=== PATIENT | female | born 1995 | race Native Hawaiian/Other Pacific Islander ===

== ENCOUNTER 2020-12-13 23:20 | Emergency (ER) | payer MEDICAID ==
[2020-12-13 23:34] VITALS: BP 114/81
[2020-12-13] MEDS ORDERED: ACETAMINOPHEN 500 MG TAB PO ONE (23:43)
[2020-12-13] MEDS ORDERED: FAMOTIDINE 20 MG TAB PO ONE (23:43)
[2020-12-14 00:17] LABS: Basophils % (Auto) 0.3 % (0.0-1.8); Eosinophils # (Auto) 0.1 K/mm3 (0.0-0.4); Eosinophils % (Auto) 1.4 % (0.0-4.3); Hematocrit 33.6 % (30.3-42.9); Hemoglobin 11.7 gm/dl (10.1-14.3); Lymphocytes # (Auto) 2.4 K/mm3 (1.2-5.4); Lymphocytes % (Auto) 22.2 % (13.4-35.0); Mean Corpuscular HGB Conc 35 % (30-34); Mean Corpuscular Volume 85 fl (79-97); Monocytes # (Auto) 0.7 K/mm3 (0.0-0.8); Monocytes % (Auto) 6.1 % (0.0-7.3); Platelet Count 206 K/mm3 (140-440); Red Blood Count 3.95 M/mm3 (3.65-5.03); Red Cell Distribution Width 13.8 % (13.2-15.2)
[2020-12-14 00:42] LABS: Alanine Aminotransferase 13 units/L (7-56); Blood Urea Nitrogen 8 mg/dL (7-17); Calcium 9.3 mg/dL (8.4-10.2); Hemolysis Index 1
[2020-12-14 00:45] LABS: BUN/Creatinine Ratio 20
[2020-12-14 00:46] LABS: Bacteria,Urine 1+ /HPF (Negative); Mucus,Urine FEW /HPF
[2020-12-14 00:56] LABS: Bilirubin,Urine Negative (Negative); Blood,Urine Negative (Negative); Color,Urine Yellow (Yellow); Urobilinogen,Urine < 2.0 mg/dL (<2.0)
--- NOTE | 2020-12-14 01:09 | Ultrasound Report ---
ULTRASOUND OBSTETRIC INDICATION / CLINICAL INFORMATION: with abdominal pain. Clinical Gestational Age (GA) in weeks, days: 17, 3 TECHNIQUE: Transabdominal. COMPARISON: None available. FINDINGS: Single intrauterine . Biparietal Diameter = 4.4 cm = 19, 3 weeks, days Head Circumference = 16.1 cm = 19, 0 weeks, days Abdominal Circumference = 12.9 cm = 18, 3 weeks, days Femur Length = 3.0 cm = 19, 2 weeks, days Average Ultrasound Age (AUA) = 19, 0 weeks, days Heart Rate: 151 beats per minute. Estimated Weight in grams (if calculated): 264 Estimated Weight Growth Percentile (if calculated): 86% Position: breech. Cervix: closed. Length in cm (if measured): 3.2 Placenta: anterior and free of the os. Amniotic Fluid Volume: normal Amniotic Fluid Index (DAYNA) in cm (if calculated): Not calculated. Maternal Adnexa: No significant abnormality. IMPRESSION: 1. Single, living intrauterine with estimated sonographic age of 19, 0 weeks, days. 2. No significant sonographic abnormality. Signer Name: Amanda Givens MD Signed: 12/14/2020 1:05 AM Workstation Name: [id number]
--- NOTE | 2020-12-14 01:24 | Emergency Department Report ---
ED Abdominal Pain HPI - General Chief Complaint: Abdominal Pain Stated Complaint: ABDOMINAL AND BACK PAIN/17 WKS Source: patient Mode of arrival: Ambulatory Limitations: No Limitations - History of Present Illness Initial Comments: Patient is a A0 25-year-old female who is approximately 17 weeks gestation presents to the ED with complaint of acute onset persistent low back pain that radiates to the lower abdomen and epigastric area for the last 2 days, worse in the last 8 hours. Patient states that the pain has been constant, persistent and sharp. Patient denies fall, heavy lifting, physical or strenuous activity, cough, nausea, vomiting, chest pain, shortness of breath, dysuria, urinary frequency and urgency, vaginal bleeding, vaginal discharge, or headache and dizziness. MD Complaint: abdominal pain, other (lower back pain) -: Sudden, days(s) (2) Location: suprapubic Radiation: back (lower) Migration to: no migration Severity scale (0 -10): 4 Quality: aching, dull Consistency: constant Improves With: nothing Worsens With: movement Associated Symptoms: denies other symptoms, anorexia. denies: nausea, vomiting, diarrhea, fever, chills, dysuria, hematochezia, melena - Related Data Previous Rx's Medication Instructions Recorded Last Taken Type Acetaminophen [Tylenol] 500 mg PO Q6HR PRN #30 tablet 12/14/20 Unknown Rx Famotidine [Pepcid] 20 mg PO BID #60 tablet 12/14/20 Unknown Rx Allergies Allergy/AdvReac Type Severity Reaction Status Date / Time No Known Allergies Allergy Unverified 12/13/20 23:28 ED Review of Systems ROS: Stated complaint: ABDOMINAL AND BACK PAIN/17 WKS Other details as noted in HPI Constitutional: denies: chills, fever Eyes: denies: eye pain, eye discharge, vision change ENT: denies: ear pain, throat pain Respiratory: denies: cough, shortness of breath, wheezing Cardiovascular: denies: chest pain, palpitations Endocrine: no symptoms reported Gastrointestinal: abdominal pain (epigastric). denies: nausea, vomiting, diarrhea Genitourinary: denies: urgency, dysuria, discharge Musculoskeletal: back pain (lower), arthralgia, myalgia. denies: joint swelling Skin: denies: rash, lesions Neurological: denies: headache, weakness, paresthesias Psychiatric: denies: anxiety, depression Hematological/Lymphatic: denies: easy bleeding, easy bruising ED Past Medical Hx - Past Medical History Previous Medical History?: Yes Hx Hypertension: Yes - Surgical History Past Surgical History?: Yes Additional Surgical History: Left leg - Social History Smoking Status: Former Smoker - Medications Home Medications: Home Medications Medication Instructions Recorded Confirmed Last Taken Type Acetaminophen [Tylenol] 500 mg PO Q6HR PRN #30 tablet 12/14/20 Unknown Rx Famotidine [Pepcid] 20 mg PO BID #60 tablet 12/14/20 Unknown Rx ED Physical Exam - General Limitations: No Limitations General appearance: alert, in no apparent distress - Head Head exam: Present: atraumatic, normocephalic, normal inspection - Eye Eye exam: Present: normal appearance, PERRL, EOMI Pupils: Present: normal accommodation - ENT ENT exam: Present: normal exam, normal orophraynx, mucous membranes moist, TM's normal bilaterally, normal external ear exam - Neck Neck exam: Present: normal inspection, full ROM - Respiratory Respiratory exam: Present: normal lung sounds bilaterally. Absent: respiratory distress, wheezes, rales, rhonchi, chest wall tenderness, accessory muscle use, prolonged expiratory - Cardiovascular Cardiovascular Exam: Present: regular rate, normal rhythm, normal heart sounds. Absent: systolic murmur, diastolic murmur, rubs, gallop - GI/Abdominal GI/Abdominal exam: Present: soft, tenderness (mildly tender upper abdomen), normal bowel sounds. Absent: guarding, rebound, hyperactive bowel sounds, hypoactive bowel sounds, organomegaly - Extremities Exam Extremities exam: Present: normal inspection, full ROM, normal capillary refill - Back Exam Back exam: Present: normal inspection, full ROM. Absent: tenderness, CVA tenderness (R), CVA tenderness (L), muscle spasm, paraspinal tenderness, vertebral tenderness - Neurological Exam Neurological exam: Present: alert, oriented X3, CN II-XII intact, normal gait, reflexes normal - Psychiatric Psychiatric exam: Present: normal affect, normal mood - Skin Skin exam: Present: warm, dry, intact, normal color. Absent: rash ED Course Vital Signs 12/13/20 23:28 Temperature 98.5 F Pulse Rate 93 H Respiratory 16 Rate Blood Pressure 114/81 [Right] O2 Sat by Pulse 100 Oximetry ED Medical Decision Making - Lab Data Result diagrams: 12/13/20 23:47 12/13/20 23:47 - Radiology Data Radiology results: report reviewed, image reviewed [facility] [address] [id number] Ultrasound Report Signed Patient: JAIDA TAVARES MR#: [id number] : 1995 Acct:[id number] Age/Sex: 25 / F ADM Date: 12/13/20 Loc: ED Attending Dr: Ordering Physician: ALEX SILVA Date of Service: 12/13/20 Procedure(s): US OB >= 14 weeks Fetus Accession Number(s): [id number] cc: ALEX SILVA ULTRASOUND OBSTETRIC INDICATION / CLINICAL INFORMATION: with abdominal pain. Clinical Gestational Age (GA) in weeks, days: 17, 3 TECHNIQUE: Transabdominal. COMPARISON: None available. FINDINGS: Single intrauterine . Biparietal Diameter = 4.4 cm = 19, 3 weeks, days Head Circumference = 16.1 cm = 19, 0 weeks, days Abdominal Circumference = 12.9 cm = 18, 3 weeks, days Femur Length = 3.0 cm = 19, 2 weeks, days Average Ultrasound Age (AUA) = 19, 0 weeks, days Heart Rate: 151 beats per minute. Estimated Weight in grams (if calculated): 264 Estimated Weight Growth Percentile (if calculated): 86% Position: breech. Cervix: closed. Length in cm (if measured): 3.2 Placenta: anterior and free of the os. Amniotic Fluid Volume: normal Amniotic Fluid Index (DAYNA) in cm (if calculated): Not calculated. Maternal Adnexa: No significant abnormality. IMPRESSION: 1. Single, living intrauterine with estimated sonographic age of 19, 0 weeks, days. 2. No significant sonographic abnormality. Signer Name: Amanda Givens MD Signed: 12/14/2020 1:05 AM Workstation Name: [id number] Transcribed By: DT Dictated By: Michele Givens MD Electronically Authenticated By: Michele Givens MD Signed Date/Time: 12/14/20104 DD/ 2 TD/TT: - Medical Decision Making This is a A0 25-year-old female who is approximately 17 weeks gestation presents to the ED with complaint of acute onset persistent low back pain that radiates to the lower abdomen and epigastric area for the last 2 days, worse in the last 8 hours. Patient states that the pain has been constant, persistent and sharp. In the ED, patient is alert and oriented x3 and is not in any distress, is hemodynamically stable. Patient was treated for pain in the ED with Tylenol and Pepcid. Lab test results were reviewed and are all nonactionable. Pelvic ultrasound showed a single, living intrauterine with estimated sonographic age of 19 weeks, 0 days with heart rate of 151 bpm. On reevaluation, patient's pain is well controlled medication. Patient was therefore discharged home on medications and advised to follow-up with her PRIMARY THERAPIST physician in 5 to 7 days for reevaluation or return to the ED immediately if symptoms get worse. - Differential Diagnosis GERD; Muscle spasms; Muscle strain; UTI Critical care attestation.: If time is entered above; I have spent that time in minutes in the direct care of this critically ill patient, excluding procedure time. ED Disposition Clinical Impression: Abdominal pain during in second trimester, Spasm of muscle of lower back Disposition: 01 HOME / SELF CARE / HOMELESS Is pt being admited?: No Does the pt Need Aspirin: No Condition: Stable Instructions: Muscle Cramps and Spasms, [id number], Abdominal Pain, Adult, [id number], Abdominal Pain (ED) Additional Instructions: Take medication with food, drink plenty fluids and follow-up with your primary care physician in 5 to 7 days for reevaluation. Return to the ED immediately if symptoms get worse. Prescriptions: Acetaminophen [Tylenol] 500 mg PO Q6HR PRN #30 tablet PRN Reason: Pain , Severe (7-10) Famotidine [Pepcid] 20 mg PO BID #60 tablet Referrals: BRANDON MARIE MD [Staff Physician] - 3-5 Days Time of Disposition: 01:21 Print Language: ESTONIAN
== END 2020-12-14 01:55 | disposition home or self-care (01) ==
LOC: ED 23:20
DX: O26.892 Other specified pregnancy related conditions, second trimester (principal); M62.830 Muscle spasm of back; R10.30 Lower abdominal pain, unspecified; Z3A.17 17 weeks gestation of pregnancy; I10 Essential (primary) hypertension; Z87.891 Personal history of nicotine dependence
CPT/HCPCS: 36415; 76805; 80053; 81001; 83690; 84702; 85025